=== PATIENT | female | born 1965 | race Caucasian/White ===

== ENCOUNTER → 2017-08-07 11:15 | Outpatient (CLI) | payer OTHER, SELFPAY ==
--- NOTE | 2017-08-07 11:15 | DT_ITS ---
This patient was seen during an EMR downtime August 04, 2017 - August 11, 2017. This patient may have a combination of paper and electronic documentation or all paper documentation. All documentation is viewable within the e-chart portion of [facility] for each patient visit.
[2017-08-12 02:58] LABS: BUN 14 mg/dL (7-18); Glucose 83 mg/dL (74-106)
[2017-08-12 02:59] LABS: ALB/GLOB Ratio 1.1 RATIO (0.9-2.4); AST(SGOT) 10 U/L (15-37); Alanine Aminotransfer ALT/SGPT 17 U/L (13-56); Albumin, Serum 3.7 g/dL (3.2-5.0); Alkaline Phosphatase 69 U/L (45-117); Anion Gap 5 (5-15); BUN/Creat Ratio 18.7 RATIO (10-20); Calcium,Total 8.5 mg/dL (8.5-10.1); Chloride 108 mmol/L (98-107); Creatinine, Serum 0.75 mg/dL (0.55-1.02); EST Glomerular Filtration Rate 87 mL/min (>60); Est Glom Filt Rate - Afr Amer 105 mL/min (>60); Globulin 3.5 g/dL (2.2-4.2); Magnesium 2.1 mg/dL (1.6-2.6); Potassium 4.1 mmol/L (3.5-5.1); Protein, Total 7.2 g/dL (6.4-8.2); Sodium Level 142 mmol/L (136-145)
== END ==
PROVIDERS: Family Provider Family Medicine; PCP Family Medicine; Visit Provider Family Medicine
DX: E87.6 Hypokalemia (principal)
CPT/HCPCS: 36415; 80053; 83735

== ENCOUNTER 2018-06-08 09:12 | Day surgery (SDC) | payer OTHER, SELFPAY ==
[2018-06-03 14:46] VITALS: BMI 27.1
[2018-06-08 09:29] VITALS: BP 140/89; PULSE 106; RESP 18; TEMP 36.8; O2SAT 100; BMI 26.8
[2018-06-08 09:41] LABS: Internal QC Validated? YES +Cl - CLEAR BKGD; Pregnancy, Urine Negative Negative
--- NOTE | 2018-06-08 10:15 | EGD_PTH ---
PATIENT: MICHOACANO SIBLEY LOC: EN U#:[id number] AGE/SX: 52/F ROOM: RE06/08/[address]: Dr. Sincere Coughlin MD : [id number] BED: DIS: 06/08/2018 SPEC #: [id number] RECD: 06/08/18 11:54 STATUS: IBETH REMiguel #: [id number] AGUSTINA: 06/08/18 10:[address]: Sincere Coughlin DEPT: SURGICAL PATHOLOGY RECD BY: Renard Lance ENTERED: 06/08/18 13:24 SP TYPE: EGD BIOPSY OTHR DR: Dr. Jono Condon MD Tissues: Cecum, NOS Procedures: Surgery Specimen Level IV HEADER OPERATION: Colonoscopy, EGD ([facility] [place] PRE-OP DIAGNOSIS: Positive Cologuard TISSUE SUBMITTED: Cecum polyp MICROSCOPIC DIAGNOSIS Cecal polyp, biopsy: Fragments of colonic mucosa with focal hyperplastic change. AM:merly 06/09/18 MICROSCOPIC DESCRIPTION Slides are reviewed. GROSS DESCRIPTION Received in fixative is one container labeled with the patient's name and designated cecum polyp. The specimen consists of a piece of strange-pink polyp measuring 0.4 x 0.3 x 0.2 cm. Also present in the container are multiple minute fragments of strange soft tissue each measuring in aggregate 0.2 x 0.1 x 0.1 cm. The specimen is totally submitted in one cassette. / SJ:merly 06/08/18 TC:5 CPT: 05074
[2018-06-08 10:27] VITALS: BP 112/73; BP 140/89; PULSE 81; RESP 16; TEMP 36.6; O2SAT 93
--- NOTE | 2018-06-08 10:28 | OP.ENDO_ITS ---
06/08/2018 Jono Condon [address] [place] [address] Re : Upper GI endoscopy procedure for Angella Ernstotoniel Dear Dr. Condon This procedure was performed on Friday, June 08, 2018. My impressions and recommendations are as follows: Impressions : - Normal esophagus. No specimens collected. - Z-line regular, 39 cm from the incisors. - Normal stomach. No specimens collected. - Normal examined duodenum. No specimens collected. Recommendations : - Discharge patient to home. - Resume previous diet. - Continue present medications. - Repeat upper endoscopy (date not yet determined) for surveillance. - Return to my office in 1 week. My findings are described in the full procedure note, which is enclosed. If I can be of further assistance, please feel free to contact me at Doctor phone number(s): , Fax: [phone], Work: . Sincerely, MD Sincere Mcclendon MD 06/08/2018 10:28:06 AM This report has been signed electronically.
--- NOTE | 2018-06-08 10:30 | OP.ENDO_ITS ---
06/08/2018 Jono Condon [address] [place] [address] Re : Colonoscopy procedure for Angella Jensen Dear Dr. Condon This procedure was performed on Friday, June 08, 2018. My impressions and recommendations are as follows: Impressions : - One 15 mm polyp in the cecum, removed with a hot snare. Resected and retrieved. - Non-bleeding external and internal hemorrhoids. - The examination was otherwise normal. Recommendations : - Discharge patient to home. - Resume previous diet. - Continue present medications. - Await pathology results. - Repeat colonoscopy in 3 years for surveillance. - Return to my office in 1 week. My findings are described in the full procedure note, which is enclosed. If I can be of further assistance, please feel free to contact me at Doctor phone number(s): , Fax: [phone], Work: . Sincerely, MD Sincere Mcclendon MD 06/08/2018 10:30:26 AM This report has been signed electronically.
[2018-06-08 10:35] VITALS: BP 119/75; BP 140/89; PULSE 77; RESP 16; O2SAT 100
[2018-06-08 10:40] VITALS: BP 114/76; BP 140/89; PULSE 76; RESP 16; O2SAT 100
[2018-06-08 10:56] VITALS: BP 117/58; BP 140/89; PULSE 77; RESP 16; TEMP 36.3; O2SAT 96
[2018-06-08 11:18] VITALS: BP 140/89
== END 2018-06-08 11:43 | disposition home or self-care (01) ==
LOC: EN 09:12 → AC 09:13
PROVIDERS: Anesthesiology; Family Provider Family Medicine; PCP Family Medicine; Referring Provider Family Medicine; Visit Provider Surgery
PROC: 0DJD8ZZ Inspection of Lower Intestinal Tract, Via Natural or Artificial Opening Endoscopic (ICD-10-PCS; CPT 45378; principal; 2018-06-08 10:10)
DX: D12.0 Benign neoplasm of cecum (principal); K64.8 Other hemorrhoids; K64.4 Residual hemorrhoidal skin tags; R19.5 Other fecal abnormalities; K21.9 Gastro-esophageal reflux disease without esophagitis; I10 Essential (primary) hypertension; F32.9 Major depressive disorder, single episode, unspecified; F41.9 Anxiety disorder, unspecified; Z79.899 Other long term (current) drug therapy
CPT/HCPCS: 43235; 45385; 81025; 88305; J7120; A4216

== ENCOUNTER → 2018-06-15 14:55 | Outpatient (CLI) | payer OTHER, SELFPAY ==
[2018-06-08 09:29] VITALS: BMI 26.8
--- NOTE | 2018-06-15 14:58 | BI_ITS ---
MAMMOGRAPHY - BILATERAL SCREENING REASON FOR EXAM: Female, 52 years old. Routine annual screening examination. PERTINENT HISTORY: Mother with breast cancer. Grandmother with breast cancer. TECHNIQUE: Digital bilateral breast dwight (3D mammographic acquisition) in the CC and MLO projections. 2-D mediolateral oblique (MLO) and craniocaudad (CC) views of both breasts were obtained. CAD: Full Field Digital Mammography with Computer Added Detection was performed. COMPARISON: Comparison is made with prior study dated August 20, 2016 and October 17, 2015. FINDINGS: Breast Composition: The breasts are heterogeneously dense, which may obscure small masses. There are no dominant masses or suspicious calcifications. Stable benign-appearing left axillary lymph node. No other significant abnormalities are identified. There has been no significant change since the prior study. BI/SCREENING MAMM (CAD), BILAT IMPRESSION: Stable bilateral screening mammogram. Yearly follow-up mammogram recommended. (A) ASSESSMENT CATEGORY: BIRADS Category 2: Benign. A letter regarding these results will be sent to the patient by the facility within 30 days. Approximately 10% of breast cancers are not detected by mammography. A normal mammogram should not delay biopsy of a clinically suspicious abnormality. [id number] Electronically Signed: Dexter Chapa, at 8:51 EDT , Service support ,
== END ==
PROVIDERS: Family Provider Family Medicine; PCP Family Medicine; Referring Provider Family Medicine; Visit Provider Family Medicine
DX: Z12.31 Encounter for screening mammogram for malignant neoplasm of breast (principal)
CPT/HCPCS: 77063; 77067

== ENCOUNTER → 2018-08-11 16:15 | Outpatient (CLI) | payer OTHER, SELFPAY ==
--- NOTE | 2018-08-11 16:23 | RAD_ITS ---
STUDY: X-RAY CHEST REASON FOR EXAM: Female, 52 years old. +PPD TECHNIQUE: PA and lateral views of the chest. COMPARISON: 08/20/2016 FINDINGS: The lungs are clear and expanded. There is no demonstrated pleural abnormality. Normal size heart. Normal mediastinum and itzel. Normal visualized pulmonary arteries. Normal visualized aortic arch and descending thoracic aorta. Normal visualized thoracic spine. Normal visualized ribs, clavicles, and shoulders. There is no demonstrated abnormality of the visualized soft tissue structures of the upper abdomen. RAD/Chest PA and Lateral IMPRESSION: Normal x-ray examination of the chest. Electronically Signed: Nitin Packer MD at 16:37 EDT Tel , Service support ,
== END ==
PROVIDERS: Family Provider Family Medicine; PCP Family Medicine; Referring Provider Family Medicine; Visit Provider Family Medicine
DX: R76.11 Nonspecific reaction to tuberculin skin test without active tuberculosis (principal)
CPT/HCPCS: 71046

== ENCOUNTER → 2018-09-10 12:08 | Outpatient (CLI) | payer OTHER, SELFPAY ==
[2018-09-10 13:11] LABS: Microalbumin,Random Urine 5.6 mg/L (NO RANGE EST.); Microalbumin:Creatinine Ratio 4.7 mg/g CRE (<30 mg/g CRE)
[2018-09-10 13:15] LABS: Anion Gap 6 (5-15); BUN 20 mg/dL (7-18); BUN/Creat Ratio 19.2 RATIO (10-20); Calcium,Total 9.3 mg/dL (8.5-10.1); Chloride 100 mmol/L (98-107); Creatinine, Serum 1.04 mg/dL (0.55-1.02); EST Glomerular Filtration Rate 59 mL/min (>60); Est Glom Filt Rate - Afr Amer 72 mL/min (>60); Glucose 94 mg/dL (74-106); Potassium 3.5 mmol/L (3.5-5.1); Sodium Level 135 mmol/L (136-145)
== END ==
PROVIDERS: Family Provider Family Medicine; PCP Family Medicine; Referring Provider Family Medicine; Visit Provider Family Medicine
DX: I10 Essential (primary) hypertension (principal)
CPT/HCPCS: 36415; 80048; 82043; 82570

== ENCOUNTER → 2019-01-25 10:49 | Outpatient (CLI) | payer OTHER, SELFPAY ==
[2019-01-25 11:36] LABS: Absolute Lymphocyte Count 1.12 X10^3/uL (0.83-4.51); Absolute Neutrophil Count 4.8 X10^3/uL (2.0-7.7); Basophil# 0.03 X10^3/uL; Basophil% 0.5 % (0-1); Eosinophil# 0.03 X10^3/uL; Eosinophils% 0.5 % (0-5); Hematocrit 38.1 % (37-47); Hemoglobin 12.8 g/dL (12.0-15.0); Lymphocyte # 1.12 X10^3/ul (4.0); Lymphocyte % 17.4 % (19-41); Mean Corp Hgb Conc 33.6 g/dL (32-36); Mean Corpuscular Hgb 31.2 pg (27.0-32.0); Mean Corpuscular Volume 92.9 fL (81-99); Monocyte# 0.44 X10^3/uL; Monocyte% 6.9 % (0-10); NRBC Flagged by Analyzer 0 % (0-5); Neutrophil # 4.79 X10^3/uL (2.7-7.7); Neutrophil % 74.5 % (47-70); Platelet Count 264 K/mm3 (150-450); RBC Distribution Width CV 12.9 % (11.6-14.6); RBC Distribution Width SD 43.9 fl (35.1-43.9); White Blood Count 6.4 K/mm3 (4.4-11.0)
[2019-01-25 12:00] LABS: ALB/GLOB Ratio 1.1 RATIO (0.9-2.4); AST(SGOT) 12 U/L (15-37); Alanine Aminotransfer ALT/SGPT 17 U/L (13-56); Albumin, Serum 3.8 g/dL (3.2-5.0); Alkaline Phosphatase 72 U/L (45-117); Anion Gap 5 (5-15); BUN 16 mg/dL (7-18); BUN/Creat Ratio 17.6 RATIO (10-20); Calcium,Total 8.7 mg/dL (8.5-10.1); Chloride 107 mmol/L (98-107); Creatinine, Serum 0.91 mg/dL (0.55-1.02); EST Glomerular Filtration Rate 69 mL/min (>60); Est Glom Filt Rate - Afr Amer 84 mL/min (>60); Globulin 3.6 g/dL (2.2-4.2); Glucose 98 mg/dL (74-106); Potassium 3.9 mmol/L (3.5-5.1); Protein, Total 7.4 g/dL (6.4-8.2); Sodium Level 140 mmol/L (136-145)
== END ==
PROVIDERS: Family Provider Family Medicine; PCP Family Medicine; Referring Provider Family Medicine; Visit Provider Family Medicine
DX: R23.8 Other skin changes (principal)
CPT/HCPCS: 36415; 80053; 85025

== ENCOUNTER 2019-03-05 07:00 | Outpatient (RCR) | payer OTHER, SELFPAY ==
--- NOTE | 2019-02-03 09:09 | HP.PTEVAL_ITS ---
Patient's Visit Information MICHOACANO SIBLEY is a 53 year old F referred to Physical Therapy by Jono Condon MD with a diagnosis of R IT band syndrome. Date of Evaluation: 02/03/19 Physical Therapist: Matt Mayberry PT, ATC - Visit Plan Frequency: 2x /Week Duration: 3 Weeks Plan: IT band stretching and strengthening, foam roller, stick rollout, core strengthening, and HEP - Subjective Findings: Pt reports her R Lateral thigh has been sore for greater than mos, and the pain is progressively worsening. Pt reports her pain always increases with prolonged standing, but notes her pain gets worse now with sitting. No LBP at this time. No Dx tests at this time. Pt reports the pain feels deep, like it is into the bone. No tingling or numbness at this time. Pt reports the pain is achy in nature. Pain had an insidious onset in nature. Pt reports she moves furniture a lot, and this may cause her pain. No sleep difficulty secondary to pain. Pt reports she is currently working out, and notes she does not stretch. 0 /10 pain at rest, 6/10 pain at worst. - Pain R thigh Pain Intensity (Out of 10): 0 Pain Intensity Range: 6 - Objective Neuro: B LE sensation is WNL to light touch. B patellar reflex= 2/3. Palpation: Minor tenderness throughout the distribution of R ITband. No obvious deformity. ROM: B LE WFL at this time. MMT: B LE's are grossly 4+/5 throughout. Flexibility: R IT band and HS muscles are moderately limited at this time - Goals Goal 1:: Decrease R LE pain x 50% to aid with standing tolerance Goal Time Frame: 2-4 Weeks Goal 2:: Increase R LE flexibility x 1 grade to aid with decreasing pain Goal Time Frame: 2-4 Weeks Goal 3:: I with HEP - Rehabilitation Potential Physical Therapy Diagnosis: Pt has R hip pain, limited flexibility, and difficulty tolerating prolonged standing secondary to R IT band syndrome Rehabilitation Potential: Good - Anticipated Interventions Patient/Client Instruction: Educate patient on: Condition, Plan of Care For the Purpose of:: To improve self management Therapeutic Exercise to Include: Strength training, Endurance training, Flexibilty training, Dynamic Lumbar Stabilization For the Purpose of:: To decrease pain, To increase ROM, To improve muscle performance and motor function Cryotherapy (ice pack, ice massage): Yes Thermo therapy (hot pack): Yes For the Purpose of:: To decrease pain Thank you for the opportunity to evaluate your patient. For Medicare and Medicare HMO plans, please review the plan of care and approve it. It will need to be FAXED BACK to us at [phone] for Medicare purposes. For Medicare only, by signing this I certify the plan of care. Please let me know if there are questions or concerns regarding this plan of care. Physician Signature: Date:
--- NOTE | 2019-03-05 07:26 | HP.PTDCSUM ---
HP - PT D/C Summary It has been my pleasure to treat MICHOACANO Guzman BENCHOFF under orders from Jono Condon MD, for the diagnosis of R IT band syndrome for a total of 9 visit(s). Discharge Date: Please see the following information for a summary of their discharge status. - Subjective Subjective: I actually feel like i am getting worse - Pain R thigh Pain Intensity (Out of 10): 0 - Objective Objective/Function: Pt has 0/10 pain currently, but still lacks tolerance for prolonged standing. Pt continues to improve with flexibility. Pt is I with HEP. Pt to transitiion to HEP with Rx goals not accomplished - Goals Goal 1:: Decrease R LE pain x 50% to aid with standing tolerance Goal Progress: Progressing Goal 2:: Increase R LE flexibility x 1 grade to aid with decreasing pain Goal Progress: Progressing Goal 3:: I with HEP Goal Progress: Goal Met - Plan Plan: Discontinue to HEP - D/C Information If there are questions or concerns regarding this patient's physical therapy, please feel free to call me at [phone]. Thank you for the referral of this patient. Sincerely, Matt Mayberry, PT, ATC
== END 2019-03-05 09:52 | disposition home or self-care (01) ==
LOC: PT 07:00
PROVIDERS: Family Provider Family Medicine; PCP Family Medicine; Referring Provider Family Medicine; Visit Provider Family Medicine
DX: M79.651 Pain in right thigh (principal); M99.05 Segmental and somatic dysfunction of pelvic region; M21.70 Unequal limb length (acquired), unspecified site
CPT/HCPCS: 97110; 97161; 97530

== ENCOUNTER → 2019-03-17 14:30 | Outpatient (CLI) | payer OTHER, SELFPAY ==
--- NOTE | 2019-03-17 14:33 | RAD_ITS ---
STUDY: X-RAY - PELVIS AND RIGHT HIP REASON FOR EXAM: Pain at the lateral aspect of the upper leg when standing, symptoms for 9 months, no specific injury. TECHNIQUE: 2 views of the pelvis and hip. COMPARISON: None. FINDINGS: Normal visualized soft tissue structures. Normal bilateral iliac wings, sacroiliac joints and visualized sacrum. Normal bilateral superior and inferior pubic rami. Normal pubic symphysis. Normal bilateral ischial tuberosities. Normal visualized femoral head. Normal acetabulum. Normal hip joint. RAD/HIP, UNI W/ Pelvis 2-3 Views IMPRESSION: Normal x-ray examination of the pelvis and right hip. Electronically Signed: Jeremi Mary MD at 15:54 EST Tel , Service support ,
== END ==
PROVIDERS: Family Provider Family Medicine; PCP Family Medicine; Referring Provider Family Medicine; Visit Provider Family Medicine
DX: M25.551 Pain in right hip (principal); G89.29 Other chronic pain
CPT/HCPCS: 73502

== ENCOUNTER → 2019-04-02 10:59 | Outpatient (CLI) | payer OTHER, SELFPAY ==
--- NOTE | 2019-04-02 11:30 | MRI_ITS ---
STUDY: MRI RIGHT HIP REASON FOR EXAM: Right leg pain when standing, symptoms for 10 months. TECHNIQUE: Standardized fat and water weighted pulse sequences were obtained in all 3 orthogonal planes. COMPARISON: Radiographs 03/17/2019. FINDINGS: Normal hip joint without articular joint space narrowing. Normal acetabulum. Normal labrum. Normal femoral head. Normal femoral neck and intratrochanteric region. Normal gluteus minimus, medius and iliopsoas tendons and distal insertions. There is no trochanteric, iliopsoas or iliopectineal bursitis. Normal superior and inferior pubic rami. Normal pubic symphysis. Normal ischial tuberosity. Normal origin of the hamstring tendons. Normal visualized iliac wing, sacroiliac joint, and sacral ala. Normal visualized soft tissue structures of the pelvis. MRI/Lower Ext Joint Only (Routine) IMPRESSION: Normal MRI of the right hip. Electronically Signed: Jeremi Mary MD at 14:08 EST Tel , Service support ,
== END ==
PROVIDERS: PCP Family Medicine; Referring Provider Family Medicine; Visit Provider Family Medicine
DX: M79.604 Pain in right leg (principal)
CPT/HCPCS: 73721

== ENCOUNTER → 2019-04-27 13:50 | Outpatient (CLI) | payer OTHER, SELFPAY ==
[2019-04-27 13:09] VITALS: BMI 27.1
--- NOTE | 2019-04-27 13:51 | RAD_ITS ---
STUDY: X-RAY - LUMBOSACRAL SPINE REASON FOR EXAM: Female, 53 years old. Pain shooting down right leg. No known injury. TECHNIQUE: 6 view(s) of the lumbosacral spine including lateral flexion and extension views were obtained. COMPARISON: None FINDINGS: 6 non rib bearing vertebral bodies. Normal lumbar lordosis. There is no substantial scoliosis. There is normal alignment of the vertebrae. Limited flexion and extension no abnormal motion Normal vertebral bodies and endplates. Minimal intervertebral disc space narrowing at the transitional vertebral body-the first sacral segment. Mild diffuse facet sclerosis. Normal bilateral sacral ala, sacroiliac joints, and visualized sacrum. Normal visualized soft tissue structures. RAD/L/S Spine Comp/w Bending Views IMPRESSION: Transitional vertebra. Mild intervertebral disc space narrowing at the transitional vertebra-first sacral segment. No acute finding. Electronically Signed: Edwardo Grewal MD at 13:15 EST , Service support ,
== END ==
PROVIDERS: PCP Family Medicine; Referring Provider Orthopaedic Surgery; Visit Provider Orthopaedic Surgery
DX: R29.898 Other symptoms and signs involving the musculoskeletal system (principal)
CPT/HCPCS: 72114

== ENCOUNTER → 2019-05-17 10:25 | Outpatient (CLI) | payer OTHER, SELFPAY ==
[2019-04-27 13:09] VITALS: BMI 27.1
[2019-05-17 11:27] LABS: Absolute Lymphocyte Count 1.35 X10^3/uL (0.83-4.51); Absolute Neutrophil Count 3.3 X10^3/uL (2.0-7.7); Basophil# 0.03 X10^3/uL; Basophil% 0.6 % (0-1); Eosinophil# 0.05 X10^3/uL; Hematocrit 39.5 % (37-47); Hemoglobin 12.8 g/dL (12.0-15.0); Lymphocyte # 1.35 X10^3/ul (4.0); Lymphocyte % 26.7 % (19-41); Mean Corp Hgb Conc 32.4 g/dL (32-36); Mean Corpuscular Hgb 29.5 pg (27.0-32.0); Monocyte# 0.34 X10^3/uL; Monocyte% 6.7 % (0-10); NRBC Flagged by Analyzer 0 % (0-5); Neutrophil # 3.28 X10^3/uL (2.7-7.7); Neutrophil % 64.8 % (47-70); Platelet Count 246 K/mm3 (150-450); RBC Distribution Width CV 12.6 % (11.6-14.6); RBC Distribution Width SD 41.7 fl (35.1-43.9); Red Blood Count 4.34 M/mm3 (4.2-5.4); White Blood Count 5.1 K/mm3 (4.4-11.0)
[2019-05-17 11:44] LABS: International Normalized Ratio 1.1; Partial Thromboplast Time 31.3 Seconds (24.1-36.2); Prothrombin Time (Protime)PT. 13.8 SECONDS (11.7-14.9)
[2019-05-17 12:06] LABS: ALB/GLOB Ratio 1.1 RATIO (0.9-2.4); AST(SGOT) 15 U/L (15-37); Alanine Aminotransfer ALT/SGPT 18 U/L (13-56); Albumin, Serum 3.8 g/dL (3.2-5.0); Alkaline Phosphatase 77 U/L (45-117); BUN 14 mg/dL (7-18); BUN/Creat Ratio 16.7 RATIO (10-20); Calcium,Total 8.5 mg/dL (8.5-10.1); Chloride 110 mmol/L (98-107); Cholesterol 163 mg/dL (200); Creatinine, Serum 0.84 mg/dL (0.55-1.02); EST Glomerular Filtration Rate 76 mL/min (>60); Est Glom Filt Rate - Afr Amer 92 mL/min (>60); Globulin 3.5 g/dL (2.2-4.2); Glucose 81 mg/dL (74-106); Potassium 3.8 mmol/L (3.5-5.1); Protein, Total 7.3 g/dL (6.4-8.2); Sodium Level 141 mmol/L (136-145); Triglycerides 48 mg/dL
[2019-05-17 12:07] LABS: Anion Gap 5 (5-15); High Density Lipoprotein 68 mg/dL; Thyroid Stim Hormone (TSH) 0.36 uIU/mL (0.358-3.74); Very Low Density Lipoprotein 10 mg/dL (5-40)
[2019-05-19 03:06] LABS: Factor VIII Activity 81 % (56-140); von Willebrand Factor Activity 72 % (50-200)
[2019-05-19 17:49] LABS: Thrombin Time 15.3 sec (0.0-23.0); VWD Studies Interp Report Note (.); von Willebrand Factor (vWF) Ag 96 % (50-200)
== END ==
PROVIDERS: PCP Family Medicine; Referring Provider Family Medicine; Visit Provider Family Medicine
DX: Z00.00 Encounter for general adult medical examination without abnormal findings (principal); R23.8 Other skin changes
CPT/HCPCS: 36415; 80053; 80061; 84443; 85025; 85240; 85245; 85246; 85610; 85670; 85730

== ENCOUNTER → 2019-06-23 08:44 | Outpatient (CLI) | payer OTHER, SELFPAY ==
[2019-04-27 13:09] VITALS: BMI 27.1
--- NOTE | 2019-06-23 13:17 | NEURO ---
NCS and/or EMG Patient Report Ordering Doctor: Miriam Wilkinson DATE OF SERVICE: 06/23/19 Angella Jensen is a 53 year old female who presents for electrodiagnostic testing of the right lower limb. She complains of pain in the lateral aspect of the right upper leg, when standing for prolonged periods. Electrodiagnostic findings: Right peroneal and tibial motor responses are within normal limits peroneal tibial F waves are normal. Normal H reflex bilaterally. Sensory responses are within normal limits. On needle EMG, 1+ fibrillations noted in the right vastus medialis and abductor longus. 1+ fibrillations noted also in the right upper lumbar paraspinals. Motor unit action potentials were normal amplitude and duration Electrodiagnostic assessment: This is an abnormal study. 1. Electrodiagnostic findings consistent with lumbar radiculopathy, likely involving the proximal lumbar nerve roots (L2-L4). Consider correlation with lumbar spine MRI. 2. No electrodiagnostic evidence is noted for peripheral neuropathy. If there are any further questions, please do not hesitate to contact me
== END ==
PROVIDERS: PCP Family Medicine; Referring Provider Orthopaedic Surgery; Visit Provider Orthopaedic Surgery
DX: R29.898 Other symptoms and signs involving the musculoskeletal system (principal)
CPT/HCPCS: 95886; 95910

== ENCOUNTER → 2019-07-06 11:02 | Outpatient (CLI) | payer OTHER, SELFPAY ==
[2019-07-01 10:43] VITALS: BMI 27.1
--- NOTE | 2019-07-06 11:03 | MRI_ITS ---
STUDY: MRI LUMBAR SPINE WITHOUT CONTRAST REASON FOR EXAM: Female, 53 years old. pain, rt leg pain, abnormal nerve conduction test TECHNIQUE: Standardized fat and water weighted pulse sequences were obtained in the sagittal and axial planes. COMPARISON: Lumbar spine x-ray dated April 27, 2019 FINDINGS: No compression deformity or fracture line or bone marrow edema is present. Normal lumbar lordosis. There is no substantial scoliosis. Normal conus medullaris that terminates at the T12-L1 level. L1-2: Normal endplates. Normal disc height, hydration and morphology. Normal bilateral facet joints. Normal central canal and bilateral lateral recesses. Normal bilateral intervertebral neural foramina. L2-3: Normal endplates. Normal disc height, hydration and morphology. Normal bilateral facet joints. Normal central canal and bilateral lateral recesses. Normal bilateral intervertebral neural foramina. L3-4: Normal endplates. Mild posterior disc space narrowing and minimal annular bulging are present. The disc is desiccated. The facet joints are mildly to moderately hypertrophied and degenerated. Normal central canal. Bilateral lateral recess stenosis without nerve root compression is also present secondary to facet joint hypertrophy. Normal bilateral intervertebral neural foramina. L4-5: Normal endplates. Diffuse disc desiccation and mild disc space narrowing are present. No disc herniation or bulging demonstrated. The facet joints are mildly hypertrophied and degenerated. Normal central canal and bilateral lateral recesses. Normal bilateral intervertebral neural foramina. L5-S1: Normal endplates. Normal disc height, hydration and morphology. Normal bilateral facet joints. Normal central canal and bilateral lateral recesses. Normal bilateral intervertebral neural foramina. Normal visualized sacral ala. Normal visualized paraspinous soft tissue structures. MRI/Spine Lumbar (Routine) IMPRESSION: Mild degenerative disc disease at L3-L4 and L4-L5. Electronically Signed: Husam Hollingsworth MD at 19:13 EDT , Service support ,
== END ==
PROVIDERS: PCP Family Medicine; Referring Provider Orthopaedic Surgery; Visit Provider Orthopaedic Surgery
DX: M54.16 Radiculopathy, lumbar region (principal); R29.898 Other symptoms and signs involving the musculoskeletal system
CPT/HCPCS: 72148

== ENCOUNTER → 2019-08-02 12:10 | Outpatient (CLI) | payer OTHER, SELFPAY ==
[2019-07-15 14:46] VITALS: BMI 27.1
--- NOTE | 2019-08-02 12:12 | BI_ITS ---
MAMMOGRAPHY - BILATERAL SCREENING REASON FOR EXAM: Female, 53 years old. Routine annual screening examination. PERTINENT HISTORY: Mother with breast cancer. Grandmother with breast cancer. TECHNIQUE: Digital bilateral breast antoinette (3D mammographic acquisition) in the CC and MLO projections. 2-D mediolateral oblique (MLO) and craniocaudad (CC) views of both breasts were obtained. CAD: Full Field Digital Mammography with Computer Added Detection was performed. COMPARISON: Comparison is made with prior study dated June 15, 2018 and August 20, 2016. FINDINGS: Breast Composition: The breasts are heterogeneously dense, which may obscure small masses. There are no dominant masses or suspicious calcifications. Stable benign-appearing left axillary lymph nodes. No other significant abnormalities are identified. There has been no significant change since the prior study. BI/SCREEN MAMM (CAD) W/ANTOINETTE BILAT IMPRESSION: Stable bilateral screening mammogram. Yearly follow-up mammogram recommended. (A) ASSESSMENT CATEGORY: BIRADS Category 2: Benign. A letter regarding these results will be sent to the patient by the facility within 30 days. Approximately 10% of breast cancers are not detected by mammography. A normal mammogram should not delay biopsy of a clinically suspicious abnormality. [id number] Electronically Signed: Dexter Chapa, at 13:19 EDT , Service support ,
== END ==
PROVIDERS: PCP Family Medicine; Referring Provider Family Medicine; Visit Provider Family Medicine
DX: Z12.31 Encounter for screening mammogram for malignant neoplasm of breast (principal)
CPT/HCPCS: 77063; 77067

== ENCOUNTER 2019-09-08 08:00 | Outpatient (RCR) | payer OTHER, SELFPAY ==
[2019-07-15 14:46] VITALS: BMI 27.1
--- NOTE | 2019-08-10 13:47 | HP.PTEVAL ---
Patient's Visit Information MICHOACANO SIBLEY is a 53 year old F referred to Physical Therapy by Dr. Neptali Owen DO with a diagnosis of RADICULOPATHY ,LUMBAR. Date of Evaluation: 08/10/19 Physical Therapist: Wesly Carreno, PT, Cert MDT, OCS - Visit Plan Frequency: 2x /Week Duration: 4 Weeks Plan: PT INTERVENTIONS RAGHU EX'S ,DLS,POSTURAL EX'S ,MODALITIES AND ILTX NEEDED - Subjective This 53 y/o female presnets to physical therapy with low back pain. Patient has had right buttuck pain and thigh symtoms about one year . Intially,PT in Dec symptoms worse but thought I-T BAND. Pateint had x-rays hip -,lumbar x-rays- ,MRI showed stenosis forminal and bulding disc. Agravating factors standing,occassionally walking bending ,lifting. Aggraveting factors rest. No MEDS. Denies parathesia/tingling. Coughing/sneezing-. Patient sleeping good. Patient symptoms affects. Patient goal is walking and go-ruck. Today ,patient has no symptoms. Patient symptoms affects QOL . Job demands sits all. VOCATION: Manufacturing Systems Engineer. SOCAIL: - Objective POSTURE: mild foward posture. GAIT: reciprocal pattern. SYMMTIES: left leg shorter. NEURO: intact ,denies parathesia/tingling,reflexes L3-4,L4-5,2/3. FLEXABLITY: hams mild tight. LUMBAR ROM: flexion min loss ,extension min loss ,side glides min loss. PALAPTIONS: unremarkable. MMT: quads right 4-/5,quads 4/5 left,hip flexion.abd 4/5,ankle 4/5. METS -unable to change leg length. TA ACT: difficulty to active transverse - Special Tests L/S Slump test left side: Negative L/S Slump test right side: Negative L/S Left Straight Leg Raise: Negative L/S Right Straight Leg Raise: Negative Lumbar Standing: Flexion - Mechanical Response: No effect Lumbar Standing: Flexion - Symptoms During Testing: No effect Lumbar Standing: Flexion - Symptoms After Testing: No effect Lumbar Standing: Extension - Mechanical Response: No effect Lumbar Standing: Extension - Symptoms During Testing: No effect Lumbar Standing: Extension - Symptoms After Testing: No effect Lumbar Standing: Right Side Glides - Mechanical Response: No effect Lumbar Standing: Right Side [place] - Symptoms During Testing: No effect Lumbar Standing: Right Side [place] - Symptoms After Testing: No effect Lumbar Standing: Left Side [place] - Mechanical Response: No effect Lumbar Standing: Left Side [place] - Symptoms During Testing: No effect Lumbar Standing: Left Side [place] - Symptoms After Testing: No effect Lumbar Lying: Flexion - Mechanical Response: No effect Lumbar Lying: Flexion - Symptoms During Testing: No effect Lumbar Lying: Flexion - Symptoms After Testing: No effect Lumbar Lying: Extension - Mechanical Response: No effect Lumbar Lying: Extension - Symptoms During Testing: No effect Lumbar Lying: Extension - Symptoms After Testing: No effect - Goals Goal 1:: Patient be I with HEP Goal Time Frame: 4-6 Weeks Goal 2:: Patient improve sitting posture and body mechanics 100% Goal Time Frame: 4-6 Weeks Goal 3:: Pateint decrease right radicular symptoms by 70% or > to improve function. Goal Time Frame: 4-6 Weeks Goal 4:: Patient to improve lumbar function of recovery Goal Time Frame: 4-6 Weeks Goal 5:: Patient to improve back owestry score by 5 points or> to improve QOL. Goal Time Frame: 4-6 Weeks - Rehabilitation Potential Physical Therapy Diagnosis: This patient has lumbar radicular symptoms right thigh with quad weakness ,leg disrepencey,and MRI showed mild DDD,bulding disc with pain worse with standing walking Rehabilitation Potential: Good - Anticipated Interventions Patient/Client Instruction: Educate patient on: Condition, Plan of Care For the Purpose of:: To decrease pain, To increase ROM, To improve muscle performance and motor function, To improve ability to perform ADL's, To increase tolerance to activity/condition/position, To improve ability of physical actions for home/community/work/leisure, To improve health of tissue, To decrease soft tissue restriction, To increase flexibility/ROM, To improve ability to perform tasks related to life management Therapeutic Exercise to Include: Strength training, Body mechanics, Postural training, Flexibilty training, Dynamic Lumbar Stabilization, Raghu Exercises For the Purpose of:: To decrease pain, To increase ROM, To improve muscle performance and motor function, To improve ability to perform ADL's, To increase tolerance to activity/condition/position, To improve ability of physical actions for home/community/work/leisure, To improve health of tissue, To decrease soft tissue restriction, To increase flexibility/ROM, To improve ability to perform tasks related to life management TENS: Yes IF ES: Yes Cryotherapy (ice pack, ice massage): Yes Thermo therapy (hot pack): Yes Ultrasound (thermal/non thermal): Yes Pelvic traction supine: Yes For the Purpose of:: To decrease pain, To increase ROM, To improve nutrient delivery to tissue, To increase oxygenation perfusion, To improve health of tissue, To decrease soft tissue restriction Thank you for the opportunity to evaluate your patient. For Medicare and Medicare HMO plans, please review the plan of care and approve it. It will need to be FAXED BACK to us at [phone] for Medicare purposes. For Medicare only, by signing this I certify the plan of care. Please let me know if there are questions or concerns regarding this plan of care. Physician Signature: Date:
--- NOTE | 2019-10-26 09:02 | HP.PTDCSUM ---
It has been my pleasure to treat MICHOACANO SIBLEY referred by Dr. Neptali Owen DO, with the diagnosis of RADICULOPATHY ,LUMBAR for a total of 9 visit(s). Discharge Date: Please see the following information for a summary of their discharge status. Subjective: Symptoms not as intense in thigh but cont to be intermittant Objective/Function: [place] TX WELL WITH ILTX DISCUSSED WITH PATIENT ABOUT TRACTION FOR TX AND DO EX'S AT HOME. GAIT: RECIPROCAL PATTERN. NEURO: INTACT. FLEXABLITY: HAMS WNL. LUMBAR ROM: WNL. MMT: 4/5 Goal 1:: Patient be I with HEP Goal 2:: Patient improve sitting posture and body mechanics 100% Goal 3:: Pateint decrease right radicular symptoms by 70% or > to improve function. Goal 4:: Patient to improve lumbar function of recovery Goal 5:: Patient to improve back owestry score by 5 points or> to improve QOL. Plan: D/C If there are questions or concerns regarding this patient's physical therapy, please feel free to call me at [phone]. Thank you for the referral of this patient. Sincerely, Wesly Carreno, PT, Cert MDT, OCS
== END 2019-09-08 19:00 | disposition home or self-care (01) ==
LOC: PT 08:00
PROVIDERS: PCP Family Medicine; Referring Provider Orthopaedic Surgery; Visit Provider Orthopaedic Surgery
DX: M54.16 Radiculopathy, lumbar region (principal)
CPT/HCPCS: 97012; 97110; 97162; 97530

== ENCOUNTER → 2019-09-14 07:49 | Outpatient (CLI) | payer OTHER, SELFPAY ==
[2019-07-15 14:46] VITALS: BMI 27.1
--- NOTE | 2019-09-14 07:52 | RAD_ITS ---
STUDY: X-RAY - ESOPHAGUS (BARIUM SWALLOW) WITH FLUOROSCOPY REASON FOR EXAM: Female, 54 years old. [address] PT ST - CONSTANT CLEARING OF THROAT X 12 YRS. 25 FL SPOTS. TECHNIQUE: 25 view(s) of the esophagus were obtained following swallowing of barium. FLUOROSCOPY TIME (if supplied): (0:59) minutes/seconds COMPARISON: None. FINDINGS: There is no demonstrated esophageal foreign body. There is no demonstrated stricture or mucosal abnormality. Normal gastroesophageal junction, without a demonstrated hiatal hernia. The patient ingested a 12 mm tablet of barium without any difficulty. Normal visualized aortic arch and descending thoracic aorta. Normal visualized pulmonary parenchyma. Normal visualized osseous structures of the thorax. RAD/Esophagus Dual Contrast IMPRESSION: Normal plain film x-ray examination (barium swallow) of the esophagus. Electronically Signed: Dexter Chapa, at 13:15 EDT , Service support ,
== END ==
PROVIDERS: PCP Family Medicine; Referring Provider Otolaryngology Otolaryngology/Facial Plastic Surgery; Visit Provider Otolaryngology Otolaryngology/Facial Plastic Surgery
DX: R13.10 Dysphagia, unspecified (principal)
CPT/HCPCS: 74221

== ENCOUNTER → 2020-04-07 15:30 | Outpatient (CLI) | payer OTHER, SELFPAY ==
[2019-07-15 14:46] VITALS: BMI 27.1
[2020-04-07 17:44] LABS: Absolute Neutrophil Count 3.3 X10^3/uL (2.0-7.7); Basophil# 0.03 X10^3/uL; Basophil% 0.5 % (0-1); Eosinophil# 0.09 X10^3/uL; Eosinophils% 1.6 % (0-5); Hematocrit 37.8 % (37-47); Lymphocyte % 28.7 % (19-41); Mean Corp Hgb Conc 34.4 g/dL (32-36); Mean Corpuscular Hgb 30.6 pg (27.0-32.0); Mean Corpuscular Volume 88.9 fL (81-99); Mean Platelet Vol. 10.2 fl (6.2-12.0); Monocyte# 0.57 X10^3/uL; Monocyte% 10.2 % (0-10); NRBC Flagged by Analyzer 0 % (0-5); Neutrophil # 3.27 X10^3/uL (2.7-7.7); Neutrophil % 58.8 % (47-70); Platelet Count 297 K/mm3 (150-450); RBC Distribution Width CV 12.5 % (11.6-14.6); RBC Distribution Width SD 40.5 fl (35.1-43.9); Red Blood Count 4.25 M/mm3 (4.2-5.4); White Blood Count 5.6 K/mm3 (4.4-11.0)
[2020-04-07 18:05] LABS: Thyroid Stim Hormone (TSH) 0.18 uIU/mL (0.358-3.74)
[2020-04-13 15:54] LABS: HPV Reflexed? NOT INDICATED
== END ==
PROVIDERS: PCP Family Medicine; Referring Provider Family Medicine; Visit Provider Family Medicine
DX: N92.1 Excessive and frequent menstruation with irregular cycle (principal); Z12.4 Encounter for screening for malignant neoplasm of cervix
CPT/HCPCS: 36415; 84443; 85025; 88175; G0145

== ENCOUNTER → 2020-04-25 12:25 | Outpatient (CLI) | payer OTHER, SELFPAY ==
[2019-07-15 14:46] VITALS: BMI 27.1
[2020-04-25 15:53] LABS: Free T3 2.9 pg/mL (2.18-3.98); T4 Total, Thyroxin 8.8 ug/dL (4.8-13.9); Thyroid Stim Hormone (TSH) 0.16 uIU/mL (0.358-3.74)
== END ==
PROVIDERS: PCP Family Medicine; Referring Provider Family Medicine; Visit Provider Family Medicine
DX: N92.1 Excessive and frequent menstruation with irregular cycle (principal)
CPT/HCPCS: 36415; 84436; 84443; 84481